=== PATIENT | female | born 2000 | race Caucasian/White ===

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

== ENCOUNTER 2022-01-06 21:18 | Emergency (ER) | payer OTHER, MEDICAID, SELFPAY ==
--- NOTE | ~2022-01-06 | CT_ITS ---
EXAMINATION: CTA chest PE protocol DATE: 01/07/2022 00:18 INDICATION: Right chest pain. Shortness of breath. TECHNIQUE: Computed tomography angiography (CTA) of the chest was performed with 100 mL Omnipaque-350 intravenous contrast timed to evaluate the pulmonary arteries. Coronal maximum intensity projection 3D-reconstructions were created by the technologist. Automated exposure control and iterative reconst ruction technique were employed. The dose-length product was 237.08 mGy-cm. COMPARISON: CT abdomen and pelvis 05/02/17 FINDINGS: There are 2 nodules in right lung lower lobe with the larger measuring 4 mm, likely benign. No pleural effusion. The heart size is normal. No pericardial effusion. There is no pulmonary embolu s. There is multilevel mild facet joint osteoarthritis in the spine. IMPRESSION: 1. No pulmonary embolus. Reviewed, dictated and finalized at location A. IMPRESSION: 1. No pulmonary embolus.
--- NOTE | ~2022-01-06 | XR_ITS ---
EXAMINATION: XR chest 2V DATE: 01/06/2022 22:38 INDICATION: Chest pain TECHNIQUE: PA and lateral views of the chest are obtained. COMPARISON: None available FINDINGS: The lungs are free of acute opacities. There is no pleural effusion or pneumothorax. The ca rdiomediastinal silhouette is normal. The visualized bones and soft tissues are unremarkable. IMPRESSION: 1. No acute cardiopulmonary abnormality. Reviewed, dictated and finalized at location F.
[2022-01-06 21:45] VITALS: BP 132/83; PULSE 109; RESP 16; TEMP 36.9; O2SAT 100
[2022-01-06 22:31] VITALS: BP 127/82; PULSE 96; RESP 18; O2SAT 99
[2022-01-06 22:47] VITALS: PULSE 86
--- NOTE | 2022-01-06 23:01 | ED.SOB ---
HPI - SOB/Dyspnea General Chief Complaint: Shortness of Breath/Dyspnea <ANDREW Morrell Last Filed: 01/07/22 00:52> Stated Complaint: sob, chest pain, nausea <ANDREW Morrell Last Filed: 01/07/22 00:52> Time Seen by Provider: 01/06/22 22:29 <ANDREW Morrell Last Filed: 01/07/22 00:52> Source: patient <ANDREW Morrell Last Filed: 01/07/22 00:52> Mode of arrival: ambulatory <ANDREW Morrell Last Filed: 01/07/22 00:52> Limitations: no limitations <ANDREW Morrell Last Filed: 01/07/22 00:52> History of Present Illness HPI Narrative: This is a 21-year-old female that presents to the emergency department for chest pain present since this morning. Reports a constant feeling of tightness associated with some intermittent sharp pains in the central chest. Also reports nausea. Reports shortness of breath. Denies fever, cough, abdominal pain, or vomiting. <ANDREW Morrell Last Filed: 01/07/22 00:52> Related Data Home Medications: Home Medications Medication Instructions Recorded Confirmed sertraline 75 mg PO DAILY 04/02/21 05/21/21 <ANDREW Morrell Last Filed: 01/07/22 00:52> Allergies/Adverse Reactions: Allergies Allergy/AdvReac Type Severity Reaction Status Date / Time No Known Allergies Allergy Verified 01/06/22 22:48 <ANDREW Morrell Last Filed: 01/07/22 00:52> Review of Systems Review of Systems: CONSTITUTIONAL: Denies fever CARDIOVASCULAR: Reports chest pain. Denies edema. RESPIRATORY: Reports dyspnea. Denies cough GASTROINTESTINAL: Reports nausea. Denies abdominal pain, vomiting <ANDREW Morrell Last Filed: 01/07/22 00:52> All systems reviewed & are unremarkable except as noted in HPI and below <ANDREW Morrell Last Filed: 01/07/22 00:52> PMFSH Past Medical History Medical History: Medical History Depression <Antonette Phillips PA-C - Last Filed: 01/07/22 00:52> Surgical History Surgical History: Surgical History H/O myringotomy History of tonsillectomy <Antonette Phillips PA-C - Last Filed: 01/07/22 00:52> Family History Family History: Family History (Updated 04/03/21 @ 03:06 by Ryne Arizmendi MD) Other No significant family history <Antonette Phillips PA-C - Last Filed: 01/07/22 00:52> Social History Social History: Social History (Updated 01/06/22 @ 23:03 by Antonette Phillips PA-C) Substance use: never Gender identity (if verbalized by the patient): Female Sexual Orientation (if Verbalized by the Patient): Straight or Heterosexual <Antonette Phillips PA-C - Last Filed: 01/07/22 00:52> Exam Narrative: GENERAL: Well-appearing, well-nourished, and in no acute distress. HEAD: Normocephalic, atraumatic. EYES: EOMI. CHEST: Clear to auscultation. No respiratory distress. No wheezes rales or rhonchi HEART: Regular rate and rhythm. No murmur heard. Normal peripheral pulses. ABDOMEN: Soft, nontender, nondistended, normal active bowel sounds. EXTREMITIES: Normal range of motion. No edema. SKIN: Warm, dry, no rash. NEURO: No focal deficits. Alert and oriented x3. PSYCH: Normal mood and affect <Antonette Phillips PA-C - Last Filed: 01/07/22 00:52> Course Vital Signs Vital signs: Vital Signs Temperature 98.4 F 01/06/22 21:45 Pulse Rate 109 H 01/06/22 21:45 Respiratory Rate 16 01/06/22 21:45 Blood Pressure 132/83 01/06/22 21:45 Pulse Oximetry 100 01/06/22 21:45 Temperature 98.4 F 01/06/22 21:45 Pulse Rate 81 01/07/22 00:33 Respiratory Rate 20 01/07/22 00:33 Blood Pressure 104/60 01/07/22 00:33 Pulse Oximetry 100 01/07/22 00:33 <Antonette Phillips PA-C - Last Filed: 01/07/22 00:52> MDM - SOB/Dyspnea MDM Narrative Medical decision making narrative: Patient prese
[2022-01-06 23:07] LABS: Basophils Percent Auto 0.2 % (0.2-1.2); Eosinophils Absolute Auto 0.1 K/mm3 (0-0.3); Eosinophils Percent Auto 1.7 % (0-4.4); Hematocrit 37.2 % (37.0-47.0); Immature Granulocyte Absolute 0.03 K/mm3 (0.00-0.031); Immature Granulocyte Percent A 0.7 % (0-0.5); Lymphocytes Absolute Auto 1.27 K/mm3 (0.9-3.2); Lymphocytes Percent Auto 31.1 % (18.3-44.2); Mean Corpuscular HGB Conc 32.3 g/dl (32-36); Mean Corpuscular Hemoglobin 27.6 pg (26-34); Mean Corpuscular Volume 85.5 fl (80-100); Monocytes Absolute Auto 0.4 K/mm3 (0.1-0.6); Monocytes Percent Auto 9.3 % (2.6-8.5); Neutrophils Absolute Auto 2.3 K/mm3 (1.3-6.7); Platelet Count Result 246 k/mm3 (150-375); Red Blood Count 4.35 M/mm3 (4.2-5.4); Red Cell Distribution Width 12.4 % (11.5-14.5); White Blood Count 4.1 K/mm3 (4.5-10.0)
[2022-01-06 23:17] LABS: INR 1.1; Prothrombin Time 13.5 Seconds (11.1-14.7)
[2022-01-06 23:18] LABS: Partial Thromboplastin Time 32.5 SECONDS (22.3-36.8)
[2022-01-06] MEDS: ONDANSETRON INJ 4 MG/2 ML VIAL IV PUSH (23:19)
[2022-01-06] MEDS: FAMOTIDINE 20 MG/2 ML VIAL IV PUSH (23:19)
[2022-01-06 23:21] LABS: Alanine Aminotransferase 26 U/L (4-35); Albumin Level 4.6 g/dL (3.7-5.6); Alkaline Phosphatase 94 U/L (45-116); Anion Gap 9 mmol/L (8-16); Aspartate Amino Transferase 29 U/L (14-36); Bilirubin,Total 0.2 mg/dL (0.2-1.3); Blood Urea Nitrogen 11 mg/dL (8-21); Carbon Dioxide 25 mmol/L (22-30); Chloride 103 mmol/L (98-107); Estimated CRCL calculation 109 ml/min; Estimated Glomerular Filt Rate > 60; Glucose 110 mg/dL (65-110); Lipase 42 U/L (23-300); Potassium 4.3 mmol/L (3.4-5.0); Sodium 137 mmol/L (134-143)
[2022-01-06 23:34] LABS: Troponin I 0.013 ng/mL (0.000-0.034)
--- NOTE | 2022-01-07 | ECG_ITS ---
Measurements Intervals [place] Rate: 69 P: 24 SC: 222 QRS: -25 QRSD: 103 T: 50 QT: 350 QTc: 377 Interpretive Statements SINUS RHYTHM WITH SINUS ARRHYTHMIA WITH FIRST DEGREE AV BLOCK BORDERLINE LEFT AXIS DEVIATION [QRS AXIS < -20] INCOMPLETE RIGHT BUNDLE BRANCH BLOCK [90+ ms QRS DURATION, TERMINAL R IN V1/V2, 40+ ms S IN I/aVL/V4/V5/V6] NO PREVIOUS ECG AVAILABLE FOR COMPARISON Electronically Signed On 01-07-2022 13:44:51 CDT by Chrissy Darling M.D.
[2022-01-07 00:33] VITALS: BP 104/60; PULSE 81; RESP 20; O2SAT 100
== END 2022-01-07 01:03 | disposition home or self-care (01) ==
PROVIDERS: Physician Assistant; Emergency Provider Emergency Medicine; PCP Pediatrics
DX: R07.9 Chest pain, unspecified (principal); F32.A Depression, unspecified; Z90.89 Acquired absence of other organs
CPT/HCPCS: 36415; 71046; 71275; 80053; 81025; 83690; 84484; 85025; 85380; 85610; 85730; 93005; 96365; 96375; 99284; J0131; J2405; Q9967

== ENCOUNTER 2022-08-01 21:11 | Emergency (ER) | payer BC, OTHER, SELFPAY ==
[2022-08-01] VITALS (8 sets, daily range): BP systolic 110–124; BP diastolic 70–76; PULSE 111; RESP 20; TEMP 36.8; O2SAT 100
--- NOTE | ~2022-08-01 | XR_ITS ---
EXAMINATION: XR ankle RT min 3V DATE: 08/01/2022 21:31 INDICATION: Anterior right ankle pain post fall down stairs TECHNIQUE: Anteroposterior, oblique, mortise, and lateral views of the right ankle were obtained. COMPARISON: None. FINDINGS: Alignment is normal. No fracture. Joint spaces are well maintained. No ankle joint effusion. The so ft tissues are unremarkable. IMPRESSION: 1. Negative right ankle radiographs. Reviewed, dictated and finalized at location A. [employer]
--- NOTE | 2022-08-01 22:36 | ED.LOWEXIN ---
HPI - Extremity Injury (Lower) General Chief Complaint: Extremity Injury, Lower Stated Complaint: fall down stairs, possible ankle injury Time Seen by Provider: 08/01/22 21:18 History of Present Illness HPI Narrative: 21-year-old female presents the emergency room for evaluation of right ankle pain. Patient states that she fell down a couple of stairs this morning and feels like she might of twisted her right ankle. Patient states after the injury she went shopping with her friend for several hours. States the ankle pain got worse and started to swell. Patient states that 600 mg once and applied ice to the affected area which did not help her pain. Related Data Allergies Allergy/AdvReac Type Severity Reaction Status Date / Time No Known Allergies Allergy Verified 08/01/22 21:31 Review of Systems Review of Systems: CONSTITUTIONAL: Denies fever, chills, or sweats. EYES: Denies visual changes, redness, or discharge. ENT: Denies rhinorrhea, congestion, sore throat, or otalgia. CARDIOVASCULAR: Denies chest pain, palpitations, or edema. RESPIRATORY: Denies cough or dyspnea. GASTROINTESTINAL: Denies abdominal pain, nausea, vomiting, or diarrhea. GENITOURINARY: Denies dysuria or hematuria. SKIN: Denies rash or itching. MUSCULOSKELETAL: Reports right ankle pain NEUROLOGIC: Denies headache, numbness, dizziness, or weakness. PSYCHIATRIC: Denies anxiety or depression. PMFSH Past Medical History Medical History Depression Surgical History Surgical History H/O myringotomy History of tonsillectomy Family History Family History Other No significant family history Social History Social History Substance use: never Gender identity (if verbalized by the patient): Female Sexual Orientation (if Verbalized by the Patient): Straight or Heterosexual Exam Narrative: GENERAL: Well-appearing, well-nourished, no physical limitations, and in no acute distress. HEAD: Normocephalic, atraumatic. EYES: Conjunctivae normal, PERRLA and EOMI. CHEST: Clear to auscultation. No respiratory distress. No wheezes rales or rhonchi. HEART: Regular rate and rhythm. No murmur heard. Normal peripheral pulses. EXTREMITIES: Right ankle: +TTP with STS to the lateral malleolus, no joint laxity, neurovascular is intact distally SKIN: Warm, dry, no rash. No noted wounds NEURO: No focal deficits. Alert and oriented x3. MAEW. CN's II-XI intact bilaterally, normal gait PSYCH: Cooperative. Normal mood and affect. Course Vital Signs Vital signs: Vital Signs Temperature 36.8 C 08/01/22 21:28 Pulse Rate 111 H 08/01/22 21:28 Respiratory Rate 20 08/01/22 21:28 Blood Pressure 124/76 08/01/22 21:28 Pulse Oximetry 100 08/01/22 21:28 Oxygen Delivery Room Air 08/01/22 21:28 Temperature 36.8 C 08/01/22 21:28 Pulse Rate 111 H 08/01/22 21:28 Respiratory Rate 20 08/01/22 21:28 Blood Pressure 111/71 08/01/22 22:15 Pulse Oximetry 100 08/01/22 22:16 Oxygen Delivery Room Air 08/01/22 21:28 Discharge Plan Discharge Clinical Impression: Ankle sprain and strain Patient Disposition: Home, Self-Care Condition: Stable Instructions: Antibiotic Form Prescriptions: New ibuprofen 800 mg tablet 800 mg PO TID Qty: 20 0RF Follow-up/Referrals: Indigo,Tati Dalton MD [Primary Care Provider] - Time of Disposition: 22:40
== END 2022-08-01 22:48 | disposition home or self-care (01) ==
PROVIDERS: Emergency Provider Nurse Practitioner Family; PCP Pediatrics
DX: S93.401A Sprain of unspecified ligament of right ankle, initial encounter (principal); S96.911A Strain of unspecified muscle and tendon at ankle and foot level, right foot, initial encounter; W10.9XXA Fall (on) (from) unspecified stairs and steps, initial encounter
CPT/HCPCS: 73610; 99283